=== PATIENT | male | born 1970 | race Caucasian/White ===

== ENCOUNTER 2022-10-11 18:37 | Emergency (ER) | payer BC ==
[~2022-10-11] VITALS: Ht 172.7 cm; Wt 77.1 kg
[2022-10-11 18:49] VITALS: BP 162/78
[2022-10-11] MEDS ORDERED: ALPRAZOLAM 0.5 MG TABLET PO ONE (20:00)
[2022-10-11] MEDS ORDERED: ALPRAZOLAM 0.5 MG TABLET ONE (20:06)
--- NOTE | 2022-10-11 20:10 | NUR ---
PARACHUTIST/COMBATANT DIVER QUALIFIED AT PT'S BEDSIDE
[2022-10-11 20:31] LABS: BASOPHILS % (AUTO) 0.5 % (0.0-2.0); EOSINOPHILS % (AUTO) 0.8 % (0.0-6.0); HEMATOCRIT 46 % (39-51); HEMOGLOBIN 15.7 g/dL (13.5-17.5); LYMPHOCYTES # (AUTO) 2.1 K/uL (0.8-4.8); LYMPHOCYTES % (AUTO) 31.3 % (20.0-44.0); MEAN CORPUSCULAR HGB CONC 34 g/dl (31.0-36.0); MEAN CORPUSCULAR VOLUME 85 fL (80-96); MONOCYTES # (AUTO) 0.5 K/uL (0.1-1.30); MONOCYTES % (AUTO) 6.9 % (2.0-12.0); NEUTROPHILS # (AUTO) 4.1 K/uL (1.8-8.9); NEUTROPHILS % (AUTO) 60.5 % (43.0-81.0); PLATELET COUNT (AUTO) 237 K/uL (150-450); RED BLOOD CELL COUNT(AUTO) 5.47 MIL/uL (4.5-6.0); WHITE BLOOD COUNT (AUTO) 6.8 K/uL (4.3-11.0)
[2022-10-11 20:41] LABS: CALCIUM, SERUM 9.1 mg/dL (8.5-10.1); CARBON DIOXIDE 27 mmol/L (21-32); CHLORIDE 107 mmol/L (98-107); CREATININE 0.9 mg/dL (0.6-1.3); GLUCOSE 127 mg/dL (74-106); POTASSIUM 3.5 mmol/L (3.5-5.1); SODIUM SERUM 142 mmol/L (136-145); UREA NITROGEN, BLOOD 15 mg/dL (7-18)
[2022-10-11] MEDS ORDERED: ALPR1TAB2 PO (21:16)
== END 2022-10-11 21:49 | disposition home or self-care (01) ==
LOC: ER 18:49
DX: R07.89 Other chest pain (principal); F41.9 Anxiety disorder, unspecified; G20 Parkinson's disease; Z91.040 Latex allergy status; F17.200 Nicotine dependence, unspecified, uncomplicated; Z60.2 Problems related to living alone; Z79.899 Other long term (current) drug therapy
CPT/HCPCS: 36415; 80048-TC; 84484-TC; 85025-TC